=== PATIENT | male | born 1980 | race Caucasian/White ===

== ENCOUNTER 2016-11-29 20:41 | Emergency (ER) | payer OTHER ==
--- NOTE | ~2016-11-29 | CR21 ---
[facility] A Service of [facility] & [facility] RADIOLOGY TEXT RESULTS PATIENT: CLAUDETTE RDZ LOCATION: CFTX : 82 UNIT #: [id number] AGE: [address]: Komal Romero SEX: M ORDER DR: [id number] [facility] [address] [place], [place] [address] [id number] MR#: [id number] Acc #: [id number] NAME: CLAUDETTE RDZ : 1980 SEX: M STUDY DATE/TIME: 11/29/2016 21:07 UNIT: [facility] ROOM: STUDY DESCRIPTION: CR Ankle Min 3 Views Rt Attending Physician: Komal Romero Pa-C Ordering Physician: Jadon Correia M.D. Primary Care Physician: Primary Care Physician No MEDICAL IMAGING REPORT This report is preliminary unless electronic signature is present EXAM Right ankle 3 views HISTORY Ankle pain after twisting injury 3 days ago. Swelling. FINDINGS Three views of the left ankle demonstrate soft tissue swelling over the lateral malleolus. Incidental accessory ossicles adjacent to the tip of the lateral malleolus. No fracture. No joint space narrowing. No dislocation. IMPRESSION 1. Soft tissue swelling over the lateral malleolus. 2. No fracture. 3. Incidental accessory ossicles adjacent to the tip of the lateral malleolus. Dictated by... Jose Manuel Cueva M.D. THIS IS AN ELECTRONICALLY VERIFIED REPORT Jose Manuel Cueva M.D. at 11/30/2016 2:47 PM XIN/heidi TD: 11/30/2016 11:47 JOB #: [id number] MEDICAL IMAGING REPORT Page 1 of 1 COPY
--- NOTE | ~2016-11-29 | CR127 ---
[facility] A Service of [facility] & [facility] RADIOLOGY TEXT RESULTS PATIENT: CLAUDETTE RDZ LOCATION: CFTX : 82 UNIT #: [id number] AGE: [address]: Komal Romero SEX: M ORDER DR: [id number] [facility] [address] [place], [place] [address] [id number] E MR#: [id number] Acc #: [id number] NAME: CLAUDETTE RDZ : 1980 SEX: M STUDY DATE/TIME: 11/29/2016 21:05 UNIT: [facility] ROOM: STUDY DESCRIPTION: CR Foot Complete Min 3 View Rt Attending Physician: Komal Romero Pa-C Ordering Physician: Ed Doctor [id number] [facility] Primary Care Physician: No Primary Care Physician MEDICAL IMAGING REPORT This report is preliminary unless electronic signature is present EXAM Right foot 3 views HISTORY Foot pain and swelling for 3 days after twisting injury. FINDINGS The tarsal, metatarsal, and phalangeal elements are all anatomically normal in position and alignment. There are no articular defects. No fractures or radiopaque foreign bodies in the soft tissues are apparent. IMPRESSION Normal foot. Dictated by... Jose Manuel Cueva M.D. THIS IS AN ELECTRONICALLY VERIFIED REPORT Jose Manuel Cueva M.D. at 11/30/2016 2:47 PM DFClive/vandana TD: 11/30/2016 11:42 JOB #: [id number] MEDICAL IMAGING REPORT Page 1 of 1 COPY
== END 2016-11-29 21:54 | disposition home or self-care (01) ==
LOC: CED 20:41 → CFTX 20:41
DX: S93.401A Sprain of unspecified ligament of right ankle, initial encounter (principal); K21.9 Gastro-esophageal reflux disease without esophagitis; F17.210 Nicotine dependence, cigarettes, uncomplicated; X50.0XXA Overexertion from strenuous movement or load, initial encounter; Y93.01 Activity, walking, marching and hiking; Y92.009 Unspecified place in unspecified non-institutional (private) residence as the place of occurrence of the external cause
CPT/HCPCS: 29540; 73610; 73630; 99283